=== PATIENT | male | born 1990 | race Caucasian/White ===

== ENCOUNTER 2022-05-02 15:27 | Emergency (ER) | payer BC, SELFPAY ==
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
[2022-05-02 15:38] VITALS: BP 162/75; PULSE 91; RESP 14; TEMP 36.4; O2SAT 97; BMI 25.0
[2022-05-02 15:45] VITALS: BP 162/75; PULSE 86; RESP 14; O2SAT 99
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
[2022-05-02 16:45] VITALS: BP 129/103; PULSE 84; RESP 14; O2SAT 98
== END 2022-05-02 18:14 ==
PROVIDERS: Emergency Provider Emergency Medicine
DX: Z04.1 Encounter for examination and observation following transport accident (principal); V86.56XA Driver of dirt bike or motor/cross bike injured in nontraffic accident, initial encounter
CPT/HCPCS: 70450; 70486; 71250; 72125; 99285